=== PATIENT | male | born 1985 | race Caucasian/White ===

== ENCOUNTER 2024-01-26 11:49 | Inpatient (IN) | payer OTHER ==
[2024-01-26] MEDS ORDERED: MAGNESIUM SULFATE IN WATER 2 GM/50 ML IVPB IVPB ONE (12:43)
[2024-01-26 13:36] LABS: BASO % 0.5 % (0-2.0); EOS % 0.3 % (0-4.5); HEMATOCRIT 14.2 % (35.4-49); LYMPH % 12.5 % (8-40); MCH 18.1 pg (25.7-33.7); MCHC 27.8 g/dl (32.0-35.9); MEAN CELL VOLUME 65.3 fl (80-96); MEAN PLT VOLUME 8.2 fl (7.5-11.1); MONO % 11.2 % (3.8-10.2); NEUT % 75.5 % (42.8-82.8); PLATELET COUNT 127 10^3/uL (134-434); RBC 2.17 M/mm3 (4.00-5.60); RDW 22.8 % (11.9-15.9); WHITE BLOOD COUNT 5.2 K/mm3 (4.0-10.0)
[2024-01-26 13:39] LABS: HEMOGLOBIN 3.9 GM/dL (11.7-16.9)
[2024-01-26 13:43] LABS: INR 1.39 (0.83-1.09); PROTHROMBIN TIME (PATIENT) 15.6 SEC (9.7-13.0)
[2024-01-26 13:46] LABS: ACTIVATED PTT 25.5 SECONDS (25.2-36.5)
[2024-01-26 14:00] LABS: MAGNESIUM 2.3 mg/dL (1.8-2.4)
[2024-01-26] MEDS ORDERED: MAG HYDROX/AL HYDROX/SIMETH 30 ML UNIT-DOSE CUP ONE (14:00)
[2024-01-26] MEDS ORDERED: FAMOTIDINE 20 MG/50 ML IVPB 20 MG/50 ML MG IVPB ONE (14:00)
[2024-01-26] MEDS: FAMOTIDINE 20 MG/50 ML IVPB 20 MG/50 ML MG IVPB ONE (14:00)
[2024-01-26] MEDS: MAG HYDROX/AL HYDROX/SIMETH 30 ML UNIT-DOSE CUP PO ONE (14:01)
[2024-01-26 14:16] LABS: ANISOCYTOSIS 3+; MACROCYTOSIS 0
[2024-01-26 14:27] LABS: CHLORIDE 101 mmol/L (98-107); POTASSIUM 3.5 mmol/L (3.5-5.1); SODIUM 130 mmol/L (136-145)
[2024-01-26 14:30] LABS: CALCIUM 7.9 mg/dL (8.5-10.1); GLUCOSE,RANDOM 106 mg/dL (74-106)
[2024-01-26 14:31] LABS: ALBUMIN 3.4 g/dl (3.4-5.0); BLOOD UREA NITROGEN 7.2 mg/dL (7-18)
[2024-01-26 14:33] LABS: BILIRUBIN,DIRECT 1.1 mg/dL (0.0-0.2); CREATININE 0.8 mg/dL (0.55-1.3); SGOT/AST 67 U/L (15-37); SGPT/ALT 27 U/L (13-61)
[2024-01-26 14:34] LABS: TOT PROT 8.1 g/dl (6.4-8.2)
[2024-01-26 14:35] LABS: BILIRUBIN,TOTAL 2.1 mg/dL (0.2-1)
[2024-01-26 14:36] LABS: ALK PHOS 156 U/L (45-117)
[2024-01-26 14:41] LABS: ANION GAP 6 mmol/L (4-13); CO2 22 mmol/L (21-32)
[2024-01-26] MEDS: PANTOPRAZOLE SODIUM 40 MG VIAL IVPUSH SCH (18:12)
[2024-01-26] MEDS: SODIUM CHLORIDE 1,000 ML IV SCH (21:17)
[2024-01-26] MEDS: MUPIROCIN 2% TOPICAL OINTMENT FOR DECOLONIZATION NS SCH (21:18)
[2024-01-26] MEDS: CHLORHEXIDINE GLUCONATE 4% CLEANSER FOR DECOLONIZATION TP SCH (21:18)
[2024-01-26 21:55] LABS: HEMATOCRIT 16.9 % (35.4-49); MCH 20.4 pg (25.7-33.7); MCHC 30.5 g/dl (32.0-35.9); PLATELET COUNT 123 10^3/uL (134-434); RBC 2.53 M/mm3 (4.00-5.60); RDW 23.5 % (11.9-15.9); RETICULOCYTES 3.92 % (0.5-1.5)
[2024-01-26 23:54] LABS: HEMOGLOBIN 5.2 GM/dL (11.7-16.9)
[2024-01-27 07:14] LABS: BASO % 0.6 % (0-2.0); EOS % 0.4 % (0-4.5); HEMATOCRIT 22.8 % (35.4-49); HEMOGLOBIN 7.2 GM/dL (11.7-16.9); LYMPH % 11.6 % (8-40); MCH 22.1 pg (25.7-33.7); MCHC 31.4 g/dl (32.0-35.9); MEAN CELL VOLUME 70.3 fl (80-96); MEAN PLT VOLUME 8.1 fl (7.5-11.1); MONO % 10.3 % (3.8-10.2); NEUT % 77.1 % (42.8-82.8); PLATELET COUNT 102 10^3/uL (134-434); RBC 3.25 M/mm3 (4.00-5.60); RDW 22.9 % (11.9-15.9); WHITE BLOOD COUNT 5.9 K/mm3 (4.0-10.0)
[2024-01-27 07:33] LABS: POTASSIUM 3.7 mmol/L (3.5-5.1)
[2024-01-27 07:39] LABS: BLOOD UREA NITROGEN 10.6 mg/dL (7-18); CALCIUM 7.8 mg/dL (8.5-10.1); MAGNESIUM 2.6 mg/dL (1.8-2.4)
[2024-01-27 07:41] LABS: CREATININE 0.7 mg/dL (0.55-1.3)
[2024-01-27 07:42] LABS: PHOSPHOROUS 3.2 mg/dL (2.5-4.9); TOT PROT 7.3 g/dl (6.4-8.2)
[2024-01-27 08:07] LABS: INR 1.47 (0.83-1.09); PROTHROMBIN TIME (PATIENT) 16.4 SEC (9.7-13.0)
[2024-01-27 08:09] LABS: ACTIVATED PTT 37.3 SECONDS (25.2-36.5)
[2024-01-27] MEDS ORDERED: CEFAZOLIN SODIUM 2 GM VIAL ONE (11:49)
[2024-01-28 07:20] LABS: INR 1.6 (0.83-1.09); PROTHROMBIN TIME (PATIENT) 17.8 SEC (9.7-13.0)
[2024-01-28 07:33] LABS: POTASSIUM 3.4 mmol/L (3.5-5.1)
[2024-01-28 07:34] LABS: BASO % 0.5 % (0-2.0); EOS % 1.1 % (0-4.5); HEMATOCRIT 24.3 % (35.4-49); HEMOGLOBIN 7.6 GM/dL (11.7-16.9); MCH 22.1 pg (25.7-33.7); MCHC 31.3 g/dl (32.0-35.9); MEAN CELL VOLUME 70.5 fl (80-96); MEAN PLT VOLUME 8.5 fl (7.5-11.1); MONO % 9.6 % (3.8-10.2); NEUT % 74.8 % (42.8-82.8); PLATELET COUNT 112 10^3/uL (134-434); RBC 3.44 M/mm3 (4.00-5.60); RDW 22.6 % (11.9-15.9)
[2024-01-28 07:36] LABS: ALBUMIN 2.9 g/dl (3.4-5.0); BLOOD UREA NITROGEN 7.1 mg/dL (7-18); CALCIUM 7.7 mg/dL (8.5-10.1); MAGNESIUM 2.2 mg/dL (1.8-2.4)
[2024-01-28 07:39] LABS: CREATININE 0.6 mg/dL (0.55-1.3); PHOSPHOROUS 3.3 mg/dL (2.5-4.9)
[2024-01-28 07:40] LABS: BILIRUBIN,TOTAL 3.1 mg/dL (0.2-1)
[2024-01-28 07:41] LABS: TOT PROT 6.9 g/dl (6.4-8.2)
[2024-01-28] MEDS: POTASSIUM CHLORIDE ORAL LIQUID 20 MEQ/15 ML PO ONE (09:10)
[2024-01-28] MEDS: PANTOPRAZOLE 40 MG TABLET PO SCH (09:11)
[2024-01-28] MEDS ORDERED: PANTOPRAZOLE SODIUM 40 MG VIAL IVPUSH SCH (10:00)
[2024-01-28 12:02] LABS: HIV INTERPRETATION NEGATIVE (NEGATIVE)
[2024-01-28 14:10] VITALS: BMI 25.9
[2024-01-28] MEDS: IRON SUCROSE INJECTION 200 MG in SODIUM CHLORIDE 100 ML IVPB ONE (17:05)
[2024-01-29 07:18] LABS: BASO % 0.4 % (0-2.0); EOS % 1.8 % (0-4.5); HEMATOCRIT 25.2 % (35.4-49); HEMOGLOBIN 7.8 GM/dL (11.7-16.9); LYMPH % 17.8 % (8-40); MEAN CELL VOLUME 70.9 fl (80-96); MEAN PLT VOLUME 8.1 fl (7.5-11.1); MONO % 10.6 % (3.8-10.2); NEUT % 69.4 % (42.8-82.8); PLATELET COUNT 121 10^3/uL (134-434); RBC 3.56 M/mm3 (4.00-5.60); RDW 23.2 % (11.9-15.9); WHITE BLOOD COUNT 4.3 K/mm3 (4.0-10.0)
[2024-01-29 07:36] LABS: POTASSIUM 3.6 mmol/L (3.5-5.1)
[2024-01-29 07:38] LABS: ALBUMIN 3.1 g/dl (3.4-5.0); BLOOD UREA NITROGEN 6.7 mg/dL (7-18); CALCIUM 8.1 mg/dL (8.5-10.1); MAGNESIUM 2.3 mg/dL (1.8-2.4)
[2024-01-29 07:41] LABS: CREATININE 0.7 mg/dL (0.55-1.3); PHOSPHOROUS 3.8 mg/dL (2.5-4.9)
[2024-01-29 07:43] LABS: TOT PROT 7.3 g/dl (6.4-8.2)
[2024-01-29 07:50] LABS: INR 1.59 (0.83-1.09); PROTHROMBIN TIME (PATIENT) 17.7 SEC (9.7-13.0)
[2024-01-29] MEDS: PANTOPRAZOLE 40 MG TABLET PO SCH (10:43)
[2024-01-29] MEDS: BISACODYL 5 MG TABLET.DR (FP) PO ONE (16:14)
[2024-01-29] MEDS: PEG 3350/NA SULF BICARB CL/KCL 4000 ML SOLN.RECON PO ONE (17:59)
[2024-01-30] MEDS: SODIUM CHLORIDE 1,000 ML IV SCH (01:34)
[2024-01-30] MEDS ORDERED: MIDAZOLAM HCL 2 MG/2 ML SINGLE DOSE VIAL ONE (09:06)
[2024-01-30 09:42] LABS: BASO % 0.6 % (0-2.0); EOS % 2.4 % (0-4.5); HEMATOCRIT 24.6 % (35.4-49); HEMOGLOBIN 7.6 GM/dL (11.7-16.9); LYMPH % 16.5 % (8-40); MCH 22.4 pg (25.7-33.7); MCHC 30.9 g/dl (32.0-35.9); MEAN CELL VOLUME 72.5 fl (80-96); MEAN PLT VOLUME 8.4 fl (7.5-11.1); MONO % 10.9 % (3.8-10.2); NEUT % 69.6 % (42.8-82.8); PLATELET COUNT 123 10^3/uL (134-434); RDW 24.5 % (11.9-15.9); WHITE BLOOD COUNT 4.1 K/mm3 (4.0-10.0)
[2024-01-30 09:52] LABS: INR 1.52 (0.83-1.09)
[2024-01-30 10:00] VITALS: RESP 18
[2024-01-30 10:03] LABS: POTASSIUM 3.6 mmol/L (3.5-5.1)
[2024-01-30 10:08] LABS: ANISOCYTOSIS 3+; MACROCYTOSIS 0
[2024-01-30 10:18] LABS: ALBUMIN 3.1 g/dl (3.4-5.0); CALCIUM 8.4 mg/dL (8.5-10.1)
[2024-01-30 10:19] LABS: BLOOD UREA NITROGEN 6.8 mg/dL (7-18)
[2024-01-30 10:21] LABS: CREATININE 0.6 mg/dL (0.55-1.3)
[2024-01-30 10:23] LABS: BILIRUBIN,TOTAL 2.6 mg/dL (0.2-1)
[2024-01-30 10:25] LABS: TOT PROT 7.5 g/dl (6.4-8.2)
[2024-01-31 08:30] LABS: HEMATOCRIT 27.2 % (35.4-49); HEMOGLOBIN 8.2 GM/dL (11.7-16.9); MCH 22.2 pg (25.7-33.7); MCHC 30.3 g/dl (32.0-35.9); MEAN CELL VOLUME 73.4 fl (80-96); MEAN PLT VOLUME 8.2 fl (7.5-11.1); PLATELET COUNT 127 10^3/uL (134-434); RBC 3.71 M/mm3 (4.00-5.60); RDW 24.9 % (11.9-15.9); WHITE BLOOD COUNT 4.6 K/mm3 (4.0-10.0)
[2024-01-31 08:32] LABS: INR 1.55 (0.83-1.09); PROTHROMBIN TIME (PATIENT) 17.3 SEC (9.7-13.0)
[2024-01-31 08:56] LABS: POTASSIUM 4.1 mmol/L (3.5-5.1)
[2024-01-31 09:02] LABS: ALBUMIN 3.3 g/dl (3.4-5.0); BLOOD UREA NITROGEN 5.9 mg/dL (7-18); CALCIUM 8.7 mg/dL (8.5-10.1)
[2024-01-31 09:04] LABS: CREATININE 0.7 mg/dL (0.55-1.3)
[2024-01-31 09:05] LABS: BILIRUBIN,TOTAL 2.5 mg/dL (0.2-1); TOT PROT 7.8 g/dl (6.4-8.2)
[2024-01-31] MEDS: POLYETHYLENE GLYCOL (HEALTHYLAX) 3350 17 GM PACKET PO SCH (09:12)
[2024-01-31 13:18] VITALS: BP 130/77; PULSE 66; TEMP 98.6
== END 2024-01-31 15:23 | disposition home or self-care (01) | DRG 280 ==
LOC: JER 11:49 → JERBED 17:15 → JICU 18:56 → J5S 01-28 15:53
PROVIDERS: ADMIT Internal Medicine Pulmonary Disease; ATTEND Internal Medicine
PROC: 30233N1 Transfusion of Nonautologous Red Blood Cells into Peripheral Vein, Percutaneous Approach (ICD-10-PCS; 2024-01-26)
PROC: 06L38CZ Occlusion of Esophageal Vein with Extraluminal Device, Via Natural or Artificial Opening Endoscopic (ICD-10-PCS; principal; 2024-01-27 12:45)
PROC: 0DJD8ZZ Inspection of Lower Intestinal Tract, Via Natural or Artificial Opening Endoscopic (ICD-10-PCS; 2024-01-30)
DX: K70.31 Alcoholic cirrhosis of liver with ascites (principal); I85.11 Secondary esophageal varices with bleeding; K76.6 Portal hypertension; D69.6 Thrombocytopenia, unspecified; D62 Acute posthemorrhagic anemia; F10.20 Alcohol dependence, uncomplicated; K70.11 Alcoholic hepatitis with ascites; K64.8 Other hemorrhoids
CPT/HCPCS: 36415; 36430; 71046-TC-FY; 74178-TC; 74181-TC; 76700-TC; 80053; 80307; 82010; 82105; 82248; 82272; 82390; 82728; 83010; 83540; 83550; 83615; 83690; 83735; 84100; 85025; 85027; 85045; 85610; 85730; 86704; 86708; 86803; 86850; 86900; 86901; 86922; 87207; 87340; 87389; 87517; 87635; 93005; 93010; 99291; J1756; P9038; P9058; Q9967